=== PATIENT | male | born 1940 | race Caucasian/White ===

== ENCOUNTER 2019-04-19 10:27 | Day surgery (SDC) | payer MEDICARE ==
[2019-04-19] MEDS ORDERED: PROPOFOL 200 MG/20 ML VIAL ONE (11:04)
--- NOTE | 2019-04-20 08:10 | MRI ---
MR the lumbar spine without contrast: 04/19/2019 History: Chronic back pain, prior back surgery COMPARISON: None. TECHNIQUE: Multiplanar multisequence MR images were obtained of lumbar spine without IV contrast FINDINGS: On the basis of 5 lumbar type vertebral bodies, conus medullaris terminates at theL1 level. Sagittal STIR imaging demonstrates no focal area of osseous marrow edema. Posterior fusion hardware i s present at the L2 and L3 level, associated hardware artifact limiting detailed assessment, particularly at the L3-4 level. Anterolisthesis of L3 on L4 noted, measuring approximately 6 mm. T12-L1:Mild bilateral facet hypertrophy. Disc space narrowing and disc desiccation. No significant ce ntral canal or neural foraminal stenosis. L1-2:Mild bilateral facet hypertrophy. No significant central canal or neural foraminal stenosis. L2-3:There is disc space narrowing with disc desiccation and degenerative endplate change. The patien t appears status post bilateral laminectomy. No central canal stenosis. Mild bilateral neural foraminal stenosis suspected. L3-4:There is disc space narrowing with disc desiccation and mild disc bulge. There is prominent bila teral facet hypertrophy, left greater than right. Evaluation of the neural foramina limited on the basis of hardware artifact. Moderate/severe bilateral neural foraminal stenosis is suspected, left gr eater than right. Mild central canal stenosis noted. L4-5:There is disc desiccation and bilateral facet hypertrophy with mild bilateral neural foraminal s tenosis and mild central canal stenosis. L5-S1:Mild bilateral facet hypertrophy. There is disc space narrowing with disc desiccation. Mild lynn ateral neural foraminal stenosis. No significant central canal stenosis. Image retroperitoneal structures demonstrateno acute findings. IMPRESSION: Postoperative and degenerative change within the lumbar spine as detailed above. Most significant fin dings are present at the L3-4 level as detailed above.
== END 2019-04-19 14:00 | disposition home or self-care (01) ==
LOC: SDC/OP 10:27
PROVIDERS: ATTEND Nurse Practitioner Family
DX: M47.26 Other spondylosis with radiculopathy, lumbar region (principal); S32.009K Unspecified fracture of unspecified lumbar vertebra, subsequent encounter for fracture with nonunion; Z79.82 Long term (current) use of aspirin; Z79.899 Other long term (current) drug therapy
CPT/HCPCS: 72148; J2704